=== PATIENT | female | born 1985 | race Caucasian/White ===

== ENCOUNTER → 2021-01-15 | Outpatient (CLI) | payer SELFPAY ==
[~2021-01-15] MED LIST: CATHETER FLUSH 10 ML SYR IV PRN
--- NOTE | 2021-01-15 13:00 | Diagnostic Imaging Report ---
INDICATION: Right upper quadrant pain. The patient was administered 5.4 mCi technetium 99M Choletec intravenously and imaging of the abdomen was performed. At 30 minutes patient ingested 8 ounces Ensure, a gallbladder ejection fraction was calculated. There is homogeneous uptake of activity by the liver with prompt excretion of activity to the common duct and gallbladder. There is normal passage of activity into the small bowel. Gallbladder ejection fraction is normal at 66%. IMPRESSION: 1. Normal HIDA scan and gallbladder ejection fraction. Dictated by: Dictated on workstation # [id number]
== END ==
LOC: CARD 10:00
PROVIDERS: ATTEND Physician Assistant Surgical
DX: R10.11 Right upper quadrant pain (principal)
CPT/HCPCS: 78227; A9537